=== PATIENT | female | born 1970 | race Caucasian/White ===

== ENCOUNTER 2017-06-27 20:19 | Emergency (ER) | payer OTHER ==
[~2017-06-27] VITALS: Ht 157.5 cm; Wt 69.0 kg
[2017-06-27 20:22] VITALS: BP 131/98
== END 2017-06-27 22:45 | disposition left against medical advice (07) ==
LOC: ER 20:44
DX: R53.1 Weakness (principal); Z53.21 Procedure and treatment not carried out due to patient leaving prior to being seen by health care provider